=== PATIENT | male | born 1985 | race Caucasian/White ===

== ENCOUNTER 2023-10-10 02:07 | Emergency (ER) | payer OTHER | END 2023-10-10 02:12 | disposition left against medical advice (07) | LOC: MW.ED 02:07 | DX: Z53.21 Procedure and treatment not carried out due to patient leaving prior to being seen by health care provider (principal) ==

== ENCOUNTER 2025-01-09 12:51 | Emergency (ER) | payer OTHER, BC ==
[2025-01-09] MEDS: Albuterol/Ipratropium 3.0-0.5 MG/3 ML Neb Soln NEB ONE (13:19)
== END 2025-01-09 14:36 | disposition home or self-care (01) ==
LOC: MW.ED 12:51
DX: J40 Bronchitis, not specified as acute or chronic (principal)
CPT/HCPCS: 71045; 87428; 99285; J7620; A9270-GY

== ENCOUNTER 2025-01-11 20:50 | Emergency (ER) | payer OTHER, BC ==
[2025-01-11] MEDS: Amoxicillin/Clavulanate K 500-125 MG Tab PO ONE (21:34)
[2025-01-11] MEDS: Amoxicillin/Clavulanate K 875-125 MG Tab PO ONE (21:37)
== END 2025-01-11 22:22 | disposition home or self-care (01) ==
LOC: MW.ED 20:50
DX: J32.9 Chronic sinusitis, unspecified (principal); Z79.899 Other long term (current) drug therapy
CPT/HCPCS: 71045; 99283; A9270; 99284

== ENCOUNTER 2025-05-08 07:24 | Emergency (ER) | payer OTHER, BC | END 2025-05-08 08:52 | disposition home or self-care (01) | LOC: MW.ED 07:24 | DX: M25.511 Pain in right shoulder (principal); Z75.3 Unavailability and inaccessibility of health-care facilities | CPT/HCPCS: 73030; 99283; A9270; 99282 ==